=== PATIENT | female | born 1990 | race Caucasian/White ===

== ENCOUNTER → 2020-12-20 | Outpatient (CLI) | payer OTHER ==
[~2020-12-20] MED LIST: ALKA SELTZER PL PO; AUGMENTIN 875875 MG PO; CLARITIN10 MG PO; CLINDAMYCIN HC300 MG PO; VICODIN 5-3001 EACH PO
== END | disposition home or self-care (01) ==
LOC: US 13:30 → LAB 13:34
PROVIDERS: ATTEND Obstetrics & Gynecology
DX: Z80.3 Family history of malignant neoplasm of breast (principal)

== ENCOUNTER 2023-08-26 09:44 | Emergency (ER) | payer SELFPAY ==
[~2023-08-26] VITALS: Wt 63.5 kg
[2023-08-26] MEDS ORDERED: NAPROXEN500 MG PO (12:12)
== END 2023-08-26 12:17 | disposition home or self-care (01) ==
LOC: ED 09:44
DX: S63.602A Unspecified sprain of left thumb, initial encounter (principal); F17.290 Nicotine dependence, other tobacco product, uncomplicated; W19.XXXA Unspecified fall, initial encounter; Y93.89 Activity, other specified; Y92.89 Other specified places as the place of occurrence of the external cause; Y99.8 Other external cause status

== ENCOUNTER 2025-06-23 22:08 | Emergency (ER) | payer SELFPAY ==
[~2025-06-23] VITALS: Ht 160 cm; Wt 68.0 kg
[~2025-06-23 22:08] MED LIST changes: +NAPROXEN500 MG PO
[2025-06-23 23:04] LABS: BASO # 0.1 10*3/uL (0.0-0.1); BASO % 0.6 % (0.0-1.0); EOS # 0.4 10*3/uL (0.0-0.4); EOS % 3.0 % (1.0-4.0); MEAN CELL VOLUME 94.3 fl (81.0-99.0); MEAN CORPUSCULAR HGB 31.3 pg (27.0-31.0); MEAN PLATELET VOLUME 9.2 fl (9.6-12.3); MONO # 0.9 10*3/uL (0.1-1.0); MONO % 6.9 % (3.0-9.0); NEUT # 7.6 10*3/uL (2.3-7.9); NEUT % 60.9 % (47.0-73.0); NUCLEATED RED BLOOD CELL 0.0 % (0.0-0.0); NUCLEATED RED BLOOD CELL 0.0 10*3/uL (0.0-0.0); PLATELET COUNT AUTOMATED 315 10*3/uL (130-400); RED CELL DISTRI WIDTH 13.0 % (0-14.5)
[2025-06-23 23:12] LABS: BILIRUBIN Negative (Negative); BLOOD 2+ (Negative); CLARITY Turbid (Clear); COLOR Yellow (Yellow); KETONE Negative (Negative); LEUKO ESTERASE 3+ (Negative); NITRITE Negative (Negative); PH 6.5 (4.5-8.0); SPECIFIC GRAVITY 1.015 (1.001-1.030); UROBILINOGEN 1.0 E.U./dl (0.0-1.0)
[2025-06-23 23:28] LABS: WBC TNTC wbc/hpf (0-5)
[2025-06-23 23:38] LABS: BUN 10 mg/dl (9-23)
[2025-06-23] MEDS ORDERED: Acetaminophen/Hydrocodone Bi 3 TAB PACK PO PRN (23:40)
[2025-06-23] MEDS ORDERED: Sulfamethoxazole/Trimethopri 1 TAB TAB PO ONE (23:40)
[2025-06-23] MEDS ORDERED: SEPTDS PO (23:44)
== END 2025-06-24 00:23 | disposition home or self-care (01) ==
LOC: ED 22:08
PROVIDERS: Nurse Practitioner Family
DX: N39.0 Urinary tract infection, site not specified (principal)